=== PATIENT | male | born 1960 | race Hispanic/Latino ===

== ENCOUNTER 2019-03-22 16:18 | Emergency (ER) | payer OTHER ==
[2019-03-22] MEDS ORDERED: LIDOCAINE 5% TOPICAL PATCH TP ONE (17:30)
[2019-03-22] MEDS ORDERED: KETOROLAC TROMETHAMINE 60 MG/2 ML VIAL ONE (17:30)
[2019-03-22] MEDS ORDERED: CYCLOBENZAPRINE HCL 10 MG TABLET ONE (17:31)
== END 2019-03-22 18:01 | disposition home or self-care (01) ==
LOC: EDH 16:18
DX: M54.9 Dorsalgia, unspecified (principal); V49.40XA Driver injured in collision with unspecified motor vehicles in traffic accident, initial encounter; Y93.89 Activity, other specified; Y92.89 Other specified places as the place of occurrence of the external cause; Y99.8 Other external cause status
CPT/HCPCS: 96372; 99283; J1885